=== PATIENT | male | born 1960 | race Caucasian/White ===

== ENCOUNTER 2018-04-10 11:14 | Emergency (ER) | payer OTHER ==
--- NOTE | 2018-04-10 11:29 | PDOC ---
History of Present Illness - General Chief Complaint: Injury Stated Complaint: LEFT THIGH PAIN Time Seen by Provider: 04/10/18 11:15 History Source: Patient Exam Limitations: No Limitations - History of Present Illness Initial Comments: 04/10/18 11:17 Mr. Evans is a 57-year-old male who is relatively healthy who presents emergency department and laboratory with the assistance of her friend due to severe left thigh pain. Patient states he accidentally slipped on his dog's water bowl and fell onto his bottom. He was able to get himself up to a standing position. He noted that he was able to minimally bear weight if his left knee was bent. This occurred at 11 PM last night. This morning he noted severe pain when he attempted to ambulate, or extend the left leg. Pain is severe, 3/10 when his knees bent. Pain is 7-8/10 when he attempts to straighten the leg out, or ambulate typically. Patient denies head trauma. Patient denies loss of consciousness. Patient reports his pain is located in the left posterior thigh. Patient has not taken any pain medications. And is currently refusing pain medications. PMH: Denies PSH: Denies Medication: Atenolol drops ALLERGIES: Bee stings, penicillin Social: Denies tobacco, drug use. Family history: Noncontributory ROS GENERAL/CONSTITUTIONAL: No: fever, chills, weakness, loss of appetite. HEAD, EYES, EARS, NOSE AND THROAT: No: change in vision, ear pain, discharge, sore throat, throat swelling. CARDIOVASCULAR: No: chest pain, lightheadedness, palpitations, syncope RESPIRATORY: No: cough, shortness of breath, wheezing, hemoptysis, stridor. GASTROINTESTINAL: No: nausea, vomiting, diarrhea, abdominal cramping, rectal bleeding, constipation. GENITOURINARY: No: dysuria, hematuria, frequency, urgency, flank pain. MUSCULOSKELETAL: Yes: left thigh pain No: back pain, neck pain, joint pain SKIN: No: lesions, pallor, rash or easy bruising. NEUROLOGIC: No: headache, vertigo, paresthesias, weakness ENDOCRINE: No: unexplained weight gain or loss HEMATOLOGIC/LYMPHATIC: No: anemia, easy bleeding, swelling nodes. PHYSICAL EXAM GENERAL: The patient is in no acute distress. HEAD: Normal with no signs of trauma. EYES: PERRLA, EOMI, sclera anicteric, conjunctiva clear. ENT: Ears normal, nares patent, oropharynx clear without exudates. Moist mucous membranes. NECK: Normal range of motion, supple without lymphadenopathy, JVD, or masses. LUNGS: Breath sounds equal, clear to auscultation bilaterally. No wheezes, and no crackles. HEART:Regular rate and rhythm, normal S1 and S2 without murmur, rub or gallop. ABDOMEN: Soft, nontender, normoactive bowel sounds. No guarding, no rebound. No masses palpable. EXTREMITIES: Normal range of motion, no edema. Pain with extension at the knee Mild pain with palpation of the hamstring 2+ DP and 2+ PT 2+ popliteal pulse NEUROLOGICAL: Cranial nerves II through XII grossly intact. Normal speech. No focal neurological deficits. Sensation in tact in the foot dorsi and plantar flexion at the ankle in tact MUSCULOSKELETAL: Back non-tender to palpation, SKIN: Warm, Dry, normal turgor, no rashes or lesions noted. 04/11/18 19:32 Past History - Past Medical History Allergies/Adverse Reactions: Allergies Allergy/AdvReac Type Severity Reaction Status Date / Time bee venom protein (honey bee) Allergy Verified 04/10/18 11:26 Home Medications: Ambulatory Orders Aspirin [ASA -] 81 mg PO DAILY 11/04/15 Timolol Maleate 0.25% Gfs [Timoptic Xe 0.25%] 1 drop OD DAILY 11/04/15 Acetaminophen W/ Codeine #3 [Tylenol # 3 -] 1 tab PO BID #10 tablet MDD 2 Lidocaine 5% Patch [Lidoderm Patch -] 1 patch TP DAILY PRN #30 patch 04/10/18 Methocarbamol [Robaxin -] 500 mg PO TID PRN #30 tablet 04/10/18 Naproxen Sodium 220 mg PO BID PRN #30 tablet 04/10/18 - Suicide/Smoking/Psychosocial Hx Smoking History: Former smoker Have you smoked in the past 12 months: No Hx Alcohol Use: Yes Drug/Substance Use Hx: No Substance Use Type: Alcohol ED Treatment Course - RADIOLOGY Radiology Studies Ordered: Category Date Time Status FEMUR-LEFT [RAD] Stat Radiology 04/10/18 11:15 Ordered HIP & PELVIS-LEFT [RAD] Stat Radiology 04/10/18 11:15 Ordered Medical Decision Making - Medical Decision Making 04/10/18 13:30 Xray negative for fracture Pending discussion with Ortho 04/10/18 14:[address] Saleh - my concern about hamstring tear/rupture He states there is still nothing that he would do immediately Will Hansel Wrap Will apply Ice Will discharge to home Clinical impression: musculoskeletal pain, initial presentation *DC/Admit/Observation/Transfer Diagnosis at time of Disposition: Musculoskeletal pain of left lower extremity - Discharge Dispostion Disposition: HOME Condition at time of disposition: Stable Decision to Admit order: No - Prescriptions Prescriptions: Acetaminophen W/ Codeine #3 [Tylenol # 3 -] 1 tab PO BID #10 tablet MDD 2 Lidocaine 5% Patch [Lidoderm Patch -] 1 patch TP DAILY PRN #30 patch PRN Reason: Pain Methocarbamol [Robaxin -] 500 mg PO TID PRN #30 tablet PRN Reason: Lower Back Pain Naproxen Sodium 220 mg PO BID PRN #30 tablet PRN Reason: Pain - Referrals - Patient Instructions Printed Discharge Instructions: DI for Musculoskeletal Pain Additional Instructions: Thank you for coming to the ER Please return to the ER for any other concerns or complaints Please take medications as prescribed - Post Discharge Activity Forms/Work/School Notes: Back to Work
[2018-04-10 11:50] VITALS: BP 130/92; PULSE 78; TEMP 98; BMI 32.8
[2018-04-10] MEDS ORDERED: MAG HYDROX/AL HYDROX/SIMETH 30 ML UNIT-DOSE CUP PO ONE (14:02)
[2018-04-10] MEDS ORDERED: IBUPROFEN 600 MG TABLET (FP) PO ONE ×2 (14:02→14:03)
[2018-04-10] MEDS ORDERED: MAG HYDROX/AL HYDROX/SIMETH 30 ML UNIT-DOSE CUP ONE (14:03)
== END 2018-04-10 14:30 | disposition home or self-care (01) ==
LOC: FER 11:14
DX: M79.662 Pain in left lower leg (principal); W18.09XA Striking against other object with subsequent fall, initial encounter; Y93.89 Activity, other specified; Y92.89 Other specified places as the place of occurrence of the external cause
CPT/HCPCS: 73523-TC-FY; 73552-TC-LT-FY; 99283-25

== ENCOUNTER 2018-08-14 21:10 | Emergency (ER) | payer OTHER ==
[2018-08-14 21:25] VITALS: BP 119/84; PULSE 79; TEMP 98.1; BMI 33.1
--- NOTE | 2018-08-14 22:23 | PDOC ---
History of Present Illness - General Chief Complaint: Injury Stated Complaint: RT SHOULDER PAIN Time Seen by Provider: 08/14/18 21:33 - History of Present Illness Initial Comments: This 58-year-old man with a history of glaucoma but no other significant medical issues presents with right shoulder injury: Approximately an hour prior to presentation, patient slipped on wet leaves as he was walking his dog. He impacted his right elbow/forearm area but mainly felt pain in his right shoulder when he got to his feet. There was no head/neck injury and he denies LOC. There is no pain in torso or lower extremities. No previous history of right shoulder injury or pain. He is holding his right arm stating that he has pain in his shoulder with any movement of the arm. Past History - Past Medical History Allergies/Adverse Reactions: Allergies Allergy/AdvReac Type Severity Reaction Status Date / Time bee venom protein (honey bee) Allergy Verified 04/10/18 11:26 Penicillins Allergy Verified 08/14/18 21:12 Home Medications: Ambulatory Orders Timolol Maleate 0.25% Gfs [Timoptic Xe 0.25%] 1 drop OD DAILY 11/04/15 COPD: No - Suicide/Smoking/Psychosocial Hx Smoking History: Former smoker Have you smoked in the past 12 months: No Information on smoking cessation initiated: No Hx Alcohol Use: Yes Drug/Substance Use Hx: No Substance Use Type: Alcohol Review of Systems - Review of Systems Able to Perform ROS?: Yes Comments:: 12 point review of systems is negative except for what is noted in the history of present illness *Physical Exam - Vital Signs Last Vital Signs Temp Pulse Resp BP Pulse Ox 98.1 F 79 18 119/84 96 08/14/18 21:11 08/14/18 21:11 08/14/18 21:11 08/14/18 21:11 08/14/18 21:11 - Physical Exam Comments: GENERAL: Adult male, holding his right arm with his left hand, in mild distress secondary to right shoulder pain HEAD: Normal with no signs of trauma. EYES: PERRLA, EOMI, sclera anicteric, conjunctiva clear. ENT: Ears normal, nares patent, oropharynx clear without exudates. Moist mucous membranes. NECK: Normal range of motion, supple without lymphadenopathy, JVD, or masses. No tenderness LUNGS: Breath sounds equal, clear to auscultation bilaterally. No wheezes, and no crackles. HEART:Regular rate and rhythm, normal S1 and S2 without murmur, rub or gallop. ABDOMEN:.normal bowel sounds No guarding,tenderness or rebound.No masses No distention. EXTREMITIES: Right shoulder-moderate tenderness/mild edema/no ecchymosis or deformity anterior aspect of shoulder Pain with arm abduction greater than 30; no ecchymosis/tenderness/deformity of the clavicle or scapula No pain on extension/flexion of right elbow; no deformity tenderness or edema of forearm/wrist/hand Remainder of the extremity exam is normal NEUROLOGICAL: Cranial nerves II through XII grossly intact. Normal speech. No focal neurological deficits. . Progress Note - Progress Note Progress Note: Preliminary interpretation of the right shoulder x-ray by me: No evidence of fracture or dislocation. Because of the presence of glaucoma, patient states that he is very cautious about using medications and will use only [id number] ibuprofen which he will take once he returns home. Sling placed on the right arm. He will apply ice/cold applications to the shoulder for the next 24 hours, then warmth as needed. Patient does not have an orthopedist. Referral information for Rene mcdonnell will be given to him. The patient states that he will also ask his general medical doctor for orthopedic referral. *DC/Admit/Observation/Transfer Diagnosis at time of Disposition: Shoulder sprain Qualifiers: Encounter type: initial encounter Shoulder sprain type: unspecified sprain Laterality: right Qualified Code(s): S43.401A - Unspecified sprain of right shoulder joint, initial encounter - Discharge Dispostion Disposition: HOME Condition at time of disposition: Stable - Referrals Referrals: Mark Killian MD [Primary Care Provider] - Albert López MD [Staff Physician] - 3 days - Patient Instructions Printed Discharge Instructions: Shoulder Sprain Additional Instructions: Keep upper body elevated and ice to right shoulder as much as possible the next 24 hours Ibuprofen as needed for pain; take with food Sling when up and around for the next 3 days Follow-up with orthopedist (Dr.Ilan mcdonnell or orthopedist as per your doctor) within 3-4 days Return to ER if you have severe pain - Post Discharge Activity
== END 2018-08-14 23:09 | disposition home or self-care (01) ==
LOC: FER 21:10
DX: S43.401A Unspecified sprain of right shoulder joint, initial encounter (principal); W18.39XA Other fall on same level, initial encounter; Y93.89 Activity, other specified; Y92.89 Other specified places as the place of occurrence of the external cause; H40.9 Unspecified glaucoma; Z87.891 Personal history of nicotine dependence
CPT/HCPCS: 73030-TC-RT-FY; 99281-25

== ENCOUNTER 2019-10-15 14:19 | Emergency (ER) | payer OTHER ==
[2019-10-15] MEDS ORDERED: ONDANSETRON *ODT* 4 MG TABLET SL ONE (14:29)
[2019-10-15] MEDS ORDERED: PSEUDOEPHEDRINE HCL 30 MG TABLET PO ONE (14:30)
[2019-10-15] MEDS ORDERED: IBUPROFEN 600 MG TABLET (FP) PO ONE ×2 (14:30→15:06)
[2019-10-15 14:32] VITALS: TEMP 99.6
--- NOTE | 2019-10-15 14:44 | PDOC ---
History of Present Illness - General Chief Complaint: Cold Symptoms Stated Complaint: CONGESTED, CHILLS Time Seen by Provider: 10/15/19 14:21 History Source: Patient Exam Limitations: No Limitations - History of Present Illness Initial Comments: 10/15/19 14:38 59 yo male no pmhx here with co nasal congestion body aches, chills starting this am. also c/o nausea, and dry heaving. no vomitng . no mild cough. 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 no other medical complaints. no recent travel. no rash. no mod factors. did not take anything prior to arrival. Past History - Past Medical History Allergies/Adverse Reactions: Allergies Allergy/AdvReac Type Severity Reaction Status Date / Time bee venom protein (honey bee) Allergy Verified 10/15/19 14:45 Penicillins Allergy Verified 10/15/19 14:45 Home Medications: Ambulatory Orders Timolol Maleate 0.25% Gfs [Timoptic Xe 0.25%] 1 drop OD DAILY 11/04/15 COPD: No - Psycho Social/Smoking Cessation Hx Smoking History: Former smoker Have you smoked in the past 12 months: No Hx Alcohol Use: Yes Drug/Substance Use Hx: No Substance Use Type: Alcohol Review of Systems - Review of Systems Constitutional: Yes: Chills. No: Diaphoresis, Fever HEENTM: Yes: Nose Congestion. No: Eye Pain, Cataracts Respiratory: Yes: Cough. No: Orthopnea, Shortness of Breath Cardiac (ROS): No: Chest Pain ABD/GI: Yes: Nausea. No: Vomiting : No: Burning, Dysuria Musculoskeletal: Yes: Muscle Pain. No: Back Pain Integumentary: No: Bruising, Rash All Other Systems: Reviewed and Negative *Physical Exam - Vital Signs Last Vital Signs Temp Pulse Resp BP Pulse Ox 99.6 F 118 H 134/92 97 10/15/19 14:30 10/15/19 14:30 10/15/19 14:30 10/15/19 14:30 - Physical Exam 10/15/19 14:40 awake alert lungs faint wheezing right upper lobe. no crackles. normal effort. abd soft obese nontendern. ext wwp no rash on skin. nuero alert oriented x 3. ED Treatment Course - RADIOLOGY Radiology Studies Ordered: Category Date Time Status CHEST PA & LAT [RAD] Stat Radiology 10/15/19 14:33 Ordered Medical Decision Making - Medical Decision Making 10/15/19 14:40 pt with flu like illness, positive sick contacts. plan zofran, motrin and cxr r/ o pneumonia. d/w risk benefit of tamiflu, not indicated at this time. psuedophed for congestion. 10/15/19 15:30 cxr negative dc home Discharge - Discharge Information Problems reviewed: Yes Clinical Impression/Diagnosis: Viral illness Condition: Improved Disposition: HOME - Admission No - Follow up/Referral - Patient Discharge Instructions Patient Printed Discharge Instructions: DI for Viral Upper Respiratory Infection -- Adult Additional Instructions: you can take ibuprofen 600 mg every 8 hrs as needed for body aches, headache. or fever. you can use zofran 4 mg under tongue ever 8 hours as needed for nausea. return for any problems or concerns. you likely have the flu virus, no work until without fever for 24 hours. drink plenty of fluids, get plenty of rest,. return for shortness of breath, persistant vomiting or any concerns. - Post Discharge Activity Work/Back to School Note: Back to Work
[2019-10-15] MEDS ORDERED: ONDANSETRON *ODT* 4 MG TABLET ONE (14:45)
[2019-10-15 14:51] VITALS: BMI 42.3
[2019-10-15] MEDS ORDERED: PSEUDOEPHEDRINE HCL 30 MG TABLET ONE (15:06)
[2019-10-15] MEDS ORDERED: ACETAMINOPHEN 325 MG TABLET (FP) PO ONE (15:55)
[2019-10-15] MEDS ORDERED: ACETAMINOPHEN 325 MG TABLET (FP) ONE (15:56)
[2019-10-15 15:58] VITALS: BP 119/80
[2019-10-15 17:04] VITALS: PULSE 103
--- NOTE | 2019-10-18 09:46 | EKG ---
Test Reason : Blood Pressure : / mmHG Vent. Rate : 112 BPM Atrial Rate : 112 BPM P-R Int : 126 ms QRS Dur : 082 ms QT Int : 322 ms P-R-T Axes : 040 -34 026 degrees QTc Int : 439 ms SINUS TACHYCARDIA LEFT AXIS DEVIATION ABNORMAL ECG NO PREVIOUS ECGS AVAILABLE Confirmed by MARIMAR MARAVILLA MD ([id number]) on 10/18/2019 9:45:50 AM Referred By: MD MONTGOMERY Confirmed By:MARIMAR MARAVILLA MD
== END 2019-10-15 17:05 | disposition home or self-care (01) ==
LOC: FER 14:19
DX: B34.9 Viral infection, unspecified (principal); Z88.0 Allergy status to penicillin; Z91.030 Bee allergy status
CPT/HCPCS: 71046-TC-FY; 93005; 99282-25; Q0162

== ENCOUNTER 2021-09-20 23:44 | Emergency (ER) | payer OTHER ==
[2021-09-20 23:53] VITALS: BP 118/80; PULSE 68; TEMP 97.7; BMI 42.5
== END 2021-09-21 01:37 | disposition home or self-care (01) ==
LOC: FER 23:44
PROC: 0HQGXZZ Repair Left Hand Skin, External Approach (ICD-10-PCS; principal; 2021-09-20)
DX: S61.213A Laceration without foreign body of left middle finger without damage to nail, initial encounter (principal); S60.410A Abrasion of right index finger, initial encounter; W25.XXXA Contact with sharp glass, initial encounter
CPT/HCPCS: 73140-TC-LT-FY; 73140-TC-RT-FY; 99283-25

== ENCOUNTER 2025-01-15 03:40 | Emergency (ER) | payer OTHER ==
[2025-01-15 03:50] VITALS: BP 130/76; PULSE 86; RESP 17; TEMP 97.2; BMI 43.8
[2025-01-15 05:03] LABS: ABSOLUTE IMMATURE GRANULOCYTES 0.02 x10^3/uL (0.0-0.031); BASOPHILS # 0.04 x10^3/uL (0.01-0.08); EOSINOPHIL % 3.3 % (0.8-7.0); EOSINOPHILS # 0.24 x10^3/uL (0.04-0.54); HEMATOCRIT 50.5 % (40.1-51.0); HEMOGLOBIN 17.3 g/dL (13.7-17.5); MCHC 34.3 g/dl (32.3-36.5); MEAN CELL VOLUME 93.7 fl (79.0-92.2); MONOCYTE # 0.84 x10^3/uL (0.30-0.82); MONOCYTE % 11.6 % (5.3-12.2); PLATELET COUNT 149 x10^3/uL (163-337)
[2025-01-15 05:32] LABS: CALCIUM 9.2 mg/dL (8.5-10.1)
[2025-01-15 05:33] LABS: ALBUMIN 3.7 g/dl (3.4-5.0); BLOOD UREA NITROGEN 16.9 mg/dL (7-18)
[2025-01-15 05:38] LABS: BILIRUBIN,TOTAL 0.4 mg/dL (0.2-1); TOT PROT 7.1 g/dl (6.4-8.2)
== END 2025-01-15 07:01 | disposition home or self-care (01) ==
LOC: FER 03:40
PROC: 0HQ1XZZ Repair Face Skin, External Approach (ICD-10-PCS; principal; 2025-01-15)
DX: S01.81XA Laceration without foreign body of other part of head, initial encounter (principal); R32 Unspecified urinary incontinence; W10.9XXA Fall (on) (from) unspecified stairs and steps, initial encounter
CPT/HCPCS: 36415; 70450-TC; 80053; 85025; 99284-25